=== PATIENT | male | born 1985 | race African-American/Black ===

== ENCOUNTER 2017-03-16 02:19 | Emergency (ER) | payer SELFPAY ==
[~2017-03-16] VITALS: Ht 170.2 cm; Wt 73.0 kg
--- NOTE | ~2017-03-16 | CT4 ---
[facility]. [facility] A Service of [facility] & [facility] RADIOLOGY TEXT RESULTS PATIENT: COLLINS SANTANA LOCATION: [facility] : [birth year] UNIT #: [id number] AGE: [address]: STEVEN MCCONNELL APRN SEX: M ORDER DR: [id number] [address] [id number] [facility]. [place], [place] [address] [id number] MR#: [id number] Acc #: [id number] NAME: COLLINS SANTANA : 1985 SEX: M STUDY DATE/TIME: 03/16/2017 3:56 UNIT: [facility] ROOM: STUDY DESCRIPTION: CT Abd and Pelv Wo Cont Attending Physician: Steven Mcconnell Aprn Ordering Physician: Steven Mcconnell Aprn Primary Care Physician: Primary Care Physician No MEDICAL IMAGING REPORT This report is preliminary unless electronic signature is present EXAM CT abdomen and pelvis, noncontrast, kidney stone protocol, 03/16/2017 HISTORY 31-year-old male in the ED complaining of left side back/flank pain over the last 3 days. Urinary frequency. TECHNIQUE CT examination of the abdomen and pelvis was performed without oral or IV contrast using kidney stone protocol. This CT examination was performed with one or more of the following radiation dose reduction techniques: automatic exposure control, adjustment of mA and/or kV according to patient size, and iterative reconstruction. FINDINGS ABDOMEN: Both kidneys, both ureters and the urinary bladder are normal in noncontrast appearance. No visible nephrolithiasis or evidence of urinary obstruction. Liver, pancreas and spleen are normal in size and appearance. Possible stone material within nondistended gallbladder. No bile duct dilatation. Small bowel and colon are normal in caliber and appearance. Normal appendix. PELVIS: Bladder, prostate and rectum are within normal limits. No inguinal hernia. MUSCULOSKELETAL: The examination shows asymmetric enlargement of left posterior paraspinal musculature beginning below the rib margin and extending to the iliac crest level. Low attenuation changes within this musculature may reflect edema or inflammation. Soft tissue stranding is present within the overlying subcutaneous soft tissues in the left flank. The findings suggest potential acute myositis. Consider infectious or [facility] A Service of [facility] & [facility] RADIOLOGY TEXT RESULTS PATIENT: COLLINS SANTANA LOCATION: [facility] : [birth year] UNIT #: [id number] AGE: [address]: STEVEN MCCONNELL APRN SEX: M ORDER DR: inflammatory myositis. Correlate for any history of blunt trauma or exertional injury. Underlying osseous structures of the spine and pelvis appear normal. IMPRESSION 1. Asymmetric enlargement of left posterior paraspinal musculature with low attenuation changes within the muscles suggesting edema or inflammation. Subcutaneous soft tissue edema throughout the left flank body wall. In the absence of history of blunt trauma or exertional injury, infectious or inflammatory myositis should be considered. No evidence of abscess or other fluid collection. No underlying osseous abnormality involving the spine or pelvis. 2. No intraabdominal abnormality is seen in the left flank. No nephrolithiasis or evidence of urinary obstruction. 3. Small amount of dense material within nondistended gallbladder may represent cholelithiasis or biliary sludge. No bile duct dilatation. Dictated by... Alfredo Howard M.D. THIS IS AN ELECTRONICALLY VERIFIED REPORT Alfredo Howard M.D. at 03/16/2017 9:59 PM LINDA/dung TD: 03/16/2017 07:20 JOB #: [id number] MEDICAL IMAGING REPORT Page 1 of 1 COPY
[2017-03-16 03:57] LABS: BASOPHIL% 0.3 % (0-2.5); EOSINOPHIL# 0.2 X10e3 (0-0.7); EOSINOPHIL% 1.8 % (0.0-7.0); HEMATOCRIT 42.5 % (38.0-50.0); HEMOGLOBIN 14.3 gm/dL (13.0-16.0); LYMPHOCYTE# 2.5 X10e3 (1.0-3.5); LYMPHOCYTE% 24.4 % (17.0-45.0); MEAN CELL VOLUME 82.8 FL (83-96); MEAN CORPUSCULAR HEMOGLOBIN 27.9 PG (28-34); MEAN CORPUSCULAR HGB CONC 33.7 g/dL (30-36); MEAN PLATELET VOLUME 9.2 FL (6.5-11.5); MONOCYTE# 1.3 X10e3 (0-1.0); MONOCYTE% 12.6 % (3.0-12.0); NEUTROPHIL# 6.3 X10e3 (1.5-7.1); NEUTROPHIL% 60.9 % (40-75); PLATELET COUNT 191 X10e3 (140-420); RED BLOOD COUNT 5.13 X10e (3.90-5.60); RED CELL DISTRIBUTION WIDTH 14.1 % (11.0-15.5); WHITE BLOOD COUNT 10.3 X10e3 (4.0-10.5)
[2017-03-16 03:58] LABS: DIFF IND NO
[2017-03-16 04:05] LABS: URINE APPEARANCE CLEAR; URINE BILIRUBIN NEG (NEG); URINE BLOOD NEG (NEG); URINE COLOR DK YELLOW; URINE GLUCOSE NEG (NEG); URINE KETONE TRACE (NEG); URINE LEUKOCYTE ESTERASE NEG (NEG); URINE NITRATE NEG (NEG); URINE PH 5.5 (5-8); URINE PROTEIN 2+ (NEG); URINE SPECIFIC GRAVITY 1.029 (1.003-1.035)
[2017-03-16 04:07] LABS: ALBUMIN SERUM 3.8 g/dL (3.5-5.0); BILIRUBIN, DIRECT 0.1 mg/dL (0.0-0.2); BILIRUBIN,INDIRECT 0.6 mg/dL (0.0-0.9); BILIRUBIN,TOTAL 0.7 mg/dL (0.2-2.0); BUN/CREATININE RATIO 17.77; CALCIUM SERUM 8.9 mg/dL (8.4-10.2); CREATININE SERUM 0.9 mg/dL (0.6-1.4); GLOM FILT RATE Estimated 132.4 mL/min (>60); POTASSIUM 3.8 mmol/L (3.5-5.1); PROTEIN TOTAL SERUM 8.5 g/dL (6.0-8.3)
[2017-03-16 04:08] LABS: URBCS1 AUWI 0-2 /[HPF] (0-2); URINE BACTERIA AUWI NEG (NEGATIVE); URINE SQUAMOUS EPITHELIAL CELL OCC /[HPF]
[2017-03-16 04:23] LABS: AMPHETAMINE POS (NEG); BARBITURATES NEG (NEG); BENZODIAZEPINES NEG (NEG); COCAINE NEG (NEG); MARIJUANA NEG (NEG); OPIATES POS (NEG); TRICYCLIC ANTIDEPRESSANTS NEG (NEG); U METHADONE NEG (NEG)
[2017-03-16 04:24] LABS: CULTURE INDICATED? NO
[2017-03-16] MEDS ORDERED: NO MEDICATIONS (06:04)
== END 2017-03-16 06:57 | disposition home or self-care (01) ==
LOC: CED 02:19
PROVIDERS: Nurse Practitioner Family
DX: S29.012A Strain of muscle and tendon of back wall of thorax, initial encounter (principal); E86.0 Dehydration; F15.10 Other stimulant abuse, uncomplicated; F11.10 Opioid abuse, uncomplicated; Z88.0 Allergy status to penicillin; X50.1XXA Overexertion from prolonged static or awkward postures, initial encounter
CPT/HCPCS: 36415; 74176; 80048; 80076; 80307; 81003; 82550; 85025; 96361; 96374; 99284; J1885

== ENCOUNTER 2017-03-21 05:32 | Emergency (ER) | payer SELFPAY ==
[~2017-03-21] VITALS: Ht 172.7 cm; Wt 72.6 kg
[~2017-03-21 05:32] MED LIST: NO MEDICATIONS
[2017-03-21] MEDS ORDERED: NO MEDICATIONS (15:20)
== END 2017-03-21 07:29 | disposition left against medical advice (07) ==
LOC: CED 05:32
DX: Z53.21 Procedure and treatment not carried out due to patient leaving prior to being seen by health care provider (principal)
CPT/HCPCS: J2270; J2405

== ENCOUNTER 2017-03-21 07:55 | Observation (INO) | payer SELFPAY ==
--- NOTE | ~2017-03-21 | CR63 ---
[facility] A Service of [place] & [facility] RADIOLOGY TEXT RESULTS PATIENT: COLLINS SANTANA LOCATION: [facility] 320-01 : 86 UNIT #: [id number] AGE: [address]: Fela Hsieh MD SEX: M ORDER DR: [id number] [facility] [address] [facility]. [place], [place] [address] [id number] I MR#: [id number] Acc #: [id number] NAME: COLLINS SANTANA : 1985 SEX: M STUDY DATE/TIME: 03/22/2017 7:52 UNIT: [address] ROOM: [facility] STUDY DESCRIPTION: CR Chest 2 View Attending Physician: Fela Hsieh M.D. Ordering Physician: Siddharth Kearney Jr., M.D. Primary Care Physician: No Primary Care Physician MEDICAL IMAGING REPORT This report is preliminary unless electronic signature is present EXAM Chest, PA and lateral, 03/22/2017. HISTORY Shortness of breath, cough and chest congestion for 2 days. Smoking history for 15 years. FINDINGS PA and lateral examination of the chest upright shows a good expansion of the parenchyma with a normal distribution of the pulmonary vascularity. There is no indication of congestion, effusion, infiltrate, tumor, or nodular density. The pleural reflections and diaphragmatic contours are normal. The cardiac silhouette and mediastinal anatomy is within normal limits. IMPRESSION Normal chest. Dictated by... Elier Shea M.D. THIS IS AN ELECTRONICALLY VERIFIED REPORT Elier Shea M.D. at 03/22/2017 4:53 PM NICOLASA/nolvia TD: 03/22/2017 11:34 JOB #: [id number] MEDICAL IMAGING REPORT Page 1 of 1 COPY
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
[2017-03-21 11:07] LABS: BASOPHIL# 0.1 X10e3 (0-0.3); BASOPHIL% 0.5 % (0-2.5); EOSINOPHIL# 0.3 X10e3 (0-0.7); EOSINOPHIL% 2.5 % (0.0-7.0); HEMATOCRIT 35.9 % (38.0-50.0); HEMOGLOBIN 11.8 gm/dL (13.0-16.0); LYMPHOCYTE# 2.5 X10e3 (1.0-3.5); LYMPHOCYTE% 18.7 % (17.0-45.0); MEAN CELL VOLUME 82.7 FL (83-96); MEAN CORPUSCULAR HEMOGLOBIN 27.2 PG (28-34); MEAN CORPUSCULAR HGB CONC 32.9 g/dL (30-36); MONOCYTE# 1.3 X10e3 (0-1.0); MONOCYTE% 9.8 % (3.0-12.0); NEUTROPHIL# 9.2 X10e3 (1.5-7.1); NEUTROPHIL% 68.5 % (40-75); PLATELET COUNT 293 X10e3 (140-420); RED BLOOD COUNT 4.34 X10e (3.90-5.60); RED CELL DISTRIBUTION WIDTH 14.2 % (11.0-15.5); WHITE BLOOD COUNT 13.4 X10e3 (4.0-10.5)
[2017-03-21 11:08] LABS: DIFF IND NO
[2017-03-21 11:18] LABS: INR 1.2; PROTHROMBIN TIME (PATIENT) 13.5 SECONDS (10.0-11.7)
[2017-03-21 11:35] LABS: BILIRUBIN, DIRECT 0.1 mg/dL (0.0-0.2); BILIRUBIN,INDIRECT 0.5 mg/dL (0.0-0.9); BILIRUBIN,TOTAL 0.6 mg/dL (0.2-2.0); BUN/CREATININE RATIO 11.11; CALCIUM SERUM 8.7 mg/dL (8.4-10.2); CREATININE SERUM 0.9 mg/dL (0.6-1.4); GLOM FILT RATE Estimated 132.4 mL/min (>60); POTASSIUM 3.3 mmol/L (3.5-5.1)
[2017-03-21 13:39] LABS: AMPHETAMINE POS (NEG); BARBITURATES NEG (NEG); BENZODIAZEPINES NEG (NEG); COCAINE NEG (NEG); MARIJUANA NEG (NEG); OPIATES POS (NEG); TRICYCLIC ANTIDEPRESSANTS NEG (NEG); U METHADONE NEG (NEG)
[2017-03-21 13:40] LABS: URINE SOURCE CLEAN CATCH
[2017-03-21 13:44] LABS: URINE APPEARANCE CLEAR; URINE BILIRUBIN NEG (NEG); URINE BLOOD NEG (NEG); URINE COLOR YELLOW; URINE GLUCOSE NEG (NEG); URINE KETONE NEG (NEG); URINE LEUKOCYTE ESTERASE NEG (NEG); URINE NITRATE NEG (NEG); URINE PH 5.5 (5-8); URINE PROTEIN NEG (NEG); URINE SPECIFIC GRAVITY 1.022 (1.003-1.035)
[2017-03-21] MEDS ORDERED: NO MEDICATIONS (15:20)
[2017-03-22 05:01] LABS: BASOPHIL# 0.1 X10e3 (0-0.3); BASOPHIL% 0.8 % (0-2.5); EOSINOPHIL# 0.2 X10e3 (0-0.7); EOSINOPHIL% 1.4 % (0.0-7.0); HEMATOCRIT 35.2 % (38.0-50.0); HEMOGLOBIN 11.5 gm/dL (13.0-16.0); LYMPHOCYTE# 2.5 X10e3 (1.0-3.5); LYMPHOCYTE% 17.8 % (17.0-45.0); MEAN CELL VOLUME 82.8 FL (83-96); MEAN CORPUSCULAR HEMOGLOBIN 27.1 PG (28-34); MEAN CORPUSCULAR HGB CONC 32.7 g/dL (30-36); MEAN PLATELET VOLUME 8.2 FL (6.5-11.5); MONOCYTE# 1.5 X10e3 (0-1.0); MONOCYTE% 10.6 % (3.0-12.0); NEUTROPHIL# 9.7 X10e3 (1.5-7.1); NEUTROPHIL% 69.4 % (40-75); PLATELET COUNT 271 X10e3 (140-420); RED BLOOD COUNT 4.25 X10e (3.90-5.60); RED CELL DISTRIBUTION WIDTH 14.5 % (11.0-15.5)
[2017-03-22 05:03] LABS: DIFF IND NO
[2017-03-22 06:54] LABS: BUN/CREATININE RATIO 7.5; CALCIUM SERUM 8.7 mg/dL (8.4-10.2); CREATININE SERUM 0.8 mg/dL (0.6-1.4); POTASSIUM 3.9 mmol/L (3.5-5.1)
== END 2017-03-22 02:35 | disposition left against medical advice (07) ==
LOC: CED 07:55 → CEDOF 15:33 → CED 15:55 → C3A PCU 15:55 → CEDOF 16:59 → C3A PCU 03-22 02:35
PROVIDERS: Emergency Medicine
DX: S34.109A Unspecified injury to unspecified level of lumbar spinal cord, initial encounter (principal); V49.9XXA Car occupant (driver) (passenger) injured in unspecified traffic accident, initial encounter; F19.10 Other psychoactive substance abuse, uncomplicated; F17.210 Nicotine dependence, cigarettes, uncomplicated; M19.90 Unspecified osteoarthritis, unspecified site; Z88.0 Allergy status to penicillin
CPT/HCPCS: 36415; 71020; 72131; 74177; 80048; 80076; 80307; 81003; 82550; 83605; 85025; 85610; 87040; 87086; 94760; 96361; 96374; 96375; 99285; G0378; J0696; J2270; Q9967